=== PATIENT | female | born 1975 | race Asian ===

== ENCOUNTER 2024-04-29 09:41 | Emergency (ER) | payer BC, SELFPAY ==
[2024-04-29 09:50] VITALS: BP 100/71
--- NOTE | 2024-04-29 10:35 | ED.GENMED ---
History of Present Illness
General
Chief Complaint: Back Pain
Source: patient and family
Exam Limitations: none
Time Seen by Provider: 04/29/24 10:18
Travel History
Have you had any contact with someone who has COVID-19?: No
Do you have any symptoms of coronavirus? Fever > 100 degrees, chills, cough, shortness of breath, sore throat, loss of taste or smell, muscle aches, or headache?: No
History of Present Illness
History of Present Illness:
48-year-old female presents after she was lifting something heavy at home yesterday and put strain on her low back and now has back pain. Patient states that it was a cooler and she was bent over and did not get close enough to it. Patient states
she had pain right away. She did take some ibuprofen last night. She took 200 mg this morning. Patient denies any radiation of the pain down the legs or into the buttocks. She denies bowel or bladder incontinence. She denies motor weakness.
She states the pain is bilaterally just medial to the SI joints. No vomiting. She did have leftover Percocet from an rib injury and took 1 last
Past History
Past History
ED Past Medical History: None
Phy Exam
Physical Exam
Physical Exam:
CONSTITUTIONAL Vital signs reviewed, Patient alert and oriented to person, place and time. Well-appearing
HEAD atraumatic, normocephalic.
EYES eyelids normal to inspection, Extraocular muscles intact, Conjunctiva normal, Sclera normal.
NECK normal range of motion, Trachea midline, no jugular venous distention.
RESP no respiratory distress
BACK No obvious deformities, normal gross range of motion, no midline tenderness, mild tenderness noted in the lower lumbar paraspinal regions bilaterally. Negative straight leg raise
UPPER EXTREMITY Gross Range of motion normal, gross motor strength normal
LOWER EXTREMITY Gross range of motion normal, Gross motor strength normal
NEURO Speech normal, No focal motor deficits include, Kanwal coma scale 15, Memory normal, Cranial Nerves intact to screening exam.
SKIN Skin warm, dry, and normal in color.
PSYCHIATRIC Patient oriented to person place and time, Normal affect.
Course
Orders/Labs/Results
Orders:
Orders
04/29/24 10:34
Ketorolac [Toradol] 30 mg IM NOW STA
Vital Signs
Initial and Last Documented VS:
Initial Vital Signs
Temp Pulse Resp BP Pulse Ox
98.0 F 79 16 100/71 99
04/29/24 09:50 04/29/24 09:50 04/29/24 09:50 04/29/24 09:50 04/29/24 09:50
Last Documented Vital Signs
Temp Pulse Resp BP Pulse Ox
98.0 F 79 16 100/71 99
04/29/24 09:50 04/29/24 09:50 04/29/24 09:50 04/29/24 09:50 04/29/24 09:50
MDM/Problems Addressed
MDM/Problems Addressed:
Lumbar strain, low back pain
*Pulse Oximetry
Patient hypoxic: no
*Critical Care Note
Total Time (30-74mins, 75-104mins- exclusive of procedures): Not Applicable
Data Reviewed
Source: patient and family
Further Testing Considered But Not Given:
Considered imaging but no fall. No concern for bony injury.
Patient Management
Escalation/DeEscalation of care consider admission/obs:
48-year-old female with low back injury after lifting something heavy. Does not have any lumbar radicular symptoms. Treat with NSAIDs and muscle relaxation. I did recommend outpatient follow-up and advised that if the patient were to develop any
neuropathic findings that she may need further treatment or workup.
ED Attending Note
-
Portions of this chart may have been created with voice recognition software.� Occasional wrong word or��sound alike� substitutions may have occurred due to the inherent limitations of voice recognition software.
Discharge Plan
Departure
Patient Disposition: Home (Routine Discharge)
Date of Disposition: 04/29/24
Time of Disposition: 10:38
Patient with high blood pressure during this ER visit?: No
Discharge Problem:
Acute lumbar myofascial strain
Instructions: Low Back Pain (DC)
Prescriptions:
New
cyclobenzaprine 10 mg tablet
10 mg PO TID PRN (Reason: spasm, back pain) Qty: 15 0RF
No Action
Vitamins
1 tab PO DAILY
Activity Restrictions/Additional Instructions:
Please use ibuprofen every 6 hours for pain. Please return immediately for bladder incontinence, bowel incontinence or motor weakness. Please see your doctor in the next 3 to 5 days for follow-up and reevaluation. Please rest comfortable position.
Interventions
Interventions:
ED- Fall Risk Assessment Last Done: 04/29/24 09:50
Discharge Date and Time
Print Language: FRENCH
[2024-04-29] MEDS: TORADOL 30 MG IM (10:39)
== END 2024-04-29 10:55 | disposition home or self-care (01) ==
LOC: EMR 09:41
PROVIDERS: EMERGENCY PHYSICIAN Emergency Medicine
DX: S39.012A Strain of muscle, fascia and tendon of lower back, initial encounter (principal); X58.XXXA Exposure to other specified factors, initial encounter
CPT/HCPCS: 99282; 96372